=== PATIENT | male | born 1980 | race Caucasian/White ===

== ENCOUNTER 2021-05-08 19:37 | Emergency (ER) | payer MEDICAID ==
[~2021-05-08] VITALS: Ht 175.3 cm; Wt 90.0 kg
[2021-05-08 19:48] VITALS: BP 111/77
== END 2021-05-08 21:12 | disposition home or self-care (01) ==
LOC: ER 19:37
DX: U07.1 COVID-19 (principal); Z90.49 Acquired absence of other specified parts of digestive tract; Z88.6 Allergy status to analgesic agent
CPT/HCPCS: 99281

== ENCOUNTER 2023-01-11 21:53 | Emergency (ER) | payer MEDICAID ==
[~2023-01-11] VITALS: Ht 180.3 cm; Wt 86.0 kg
[2023-01-11 22:18] VITALS: O2SAT 100
[2023-01-11 23:44] VITALS: BP 103/66
[2023-01-11] MEDS ORDERED: IBUPROFEN 400MG TABLET PO ONE (23:45)
[2023-01-12] MEDS ORDERED: IBUP-2028 MT (00:31)
[2023-01-12 00:51] VITALS: PULSE 88; RESP 18; TEMP 98.8
== END 2023-01-12 00:53 | disposition home or self-care (01) ==
LOC: ER 21:53
DX: B34.8 Other viral infections of unspecified site (principal); R51.9 Headache, unspecified; Z20.822 Contact with and (suspected) exposure to COVID-19
CPT/HCPCS: 99283; 87426; 87430; 87070; C9803

== ENCOUNTER 2024-08-15 20:50 | Emergency (ER) | payer MEDICAID ==
[~2024-08-15] VITALS: Ht 180.3 cm; Wt 80.0 kg
[~2024-08-15 20:50] MED LIST: IBUP-2028 MT
[2024-08-15 20:56] VITALS: O2SAT 100
[2024-08-15 21:01] VITALS: BP 109/67; PULSE 88; RESP 16; TEMP 36.8; O2SAT 100
[2024-08-15] MEDS ORDERED: LIDO700A15 TP (22:55)
[2024-08-15] MEDS ORDERED: ACET-2708 MT (22:55)
[2024-08-15] MEDS: LIDOCAINE 5% PATCH TOP SCH (23:00)
[2024-08-15] MEDS: ACETAMINOPHEN 325MG TABLET PO ONE (23:00)
== END 2024-08-15 23:17 | disposition home or self-care (01) ==
LOC: ER 20:50
DX: S16.1XXA Strain of muscle, fascia and tendon at neck level, initial encounter (principal); Z88.6 Allergy status to analgesic agent; Z90.49 Acquired absence of other specified parts of digestive tract; V43.52XA Car driver injured in collision with other type car in traffic accident, initial encounter; Y93.89 Activity, other specified; Y92.410 Unspecified street and highway as the place of occurrence of the external cause; Y99.8 Other external cause status
CPT/HCPCS: 99283